=== PATIENT | male | born 1975 | race Caucasian/White ===

== ENCOUNTER 2016-09-26 16:38 | Emergency (ER) | payer OTHER ==
[~2016-09-26] VITALS: Ht 172.7 cm; Wt 90.0 kg
[2016-09-26 17:45] VITALS: BP 123/67; PULSE 77; RESP 18; TEMP 97.8; O2SAT 100
[2016-09-26 19:07] VITALS: BP 111/67; PULSE 81; RESP 18; O2SAT 100
[2016-09-26 19:21] LABS: AUTOMATED NEUTROPHIL # 9.8 TH/MM3 (1.8-7.7); BASOPHIL % 0.3 % (0.0-2.0); BLOOD, URINE NEG (NEG); EOSINOPHIL % 0.3 % (0.0-4.0); GLUCOSE,URINE NEG (NEG); HEMATOCRIT 39.7 % (39.0-51.0); HEMO FLAGS DIFF FINAL; KETONE, URINE NEG (NEG); LYMPH % 9.9 % (9.0-44.0); LYMPHOCYTE # 1.1 TH/MM3 (1.0-4.8); MEAN CELL VOLUME 91.5 FL (80.0-100.0); MEAN CORPUSCULAR HEMOGLOBIN 32.1 PG (27.0-34.0); MEAN CORPUSCULAR HGB CONC 35.1 % (32.0-36.0); MONO % 3.9 % (0.0-8.0); NEUT % 85.6 % (16.0-70.0); NITRITE,URINE NEG (NEG); PLATELET COUNT 202 TH/MM3 (150-450); RED BLOOD COUNT 4.35 MIL/MM3 (4.50-5.90); RED CELL DISTRIBUTION WIDTH 12.8 % (11.6-17.2); URINE COLOR LIGHT-YELLOW (YELLW/STRAW); WHITE BLOOD COUNT 11.5 TH/MM3 (4.0-11.0)
[2016-09-26 19:25] LABS: COMMENT (UR) CULT NOT INDICATED; CULTURE IF INDICATED CULT NOT INDICATED
[2016-09-26 19:45] LABS: ANION GAP 8 MEQ/L (5-15); AST (GOT) 14 U/L (15-37); BICARBONATE 26.5 MEQ/L (21.0-32.0); BLOOD UREA NITROGEN 10 MG/DL (7-18); CHLORIDE 105 MEQ/L (98-107); GLOMERULAR FILTRATION RATE 70 ML/MIN (>89); MAGNESIUM 2.2 MG/DL (1.5-2.5); POTASSIUM 3.3 MEQ/L (3.5-5.1); SODIUM (NA) 139 MEQ/L (136-145)
[2016-09-26 19:46] LABS: ALT (GPT) 16 U/L (12-78)
[2016-09-26 19:50] LABS: ALKALINE PHOSPHATASE 58 U/L (45-117); CREATINE KINASE 158 U/L (39-308); TOTAL BILIRUBIN ADULT 0.8 MG/DL (0.2-1.0)
--- NOTE | 2016-09-26 19:53 | PD ---
HPI Chief Complaint: Dizziness Time Seen by Provider: 19:50 Travel History International Travel<30 days: No Contact w/Intl Traveler<30days: No Traveled to known affect area: No History of Present Illness HPI 32-year-old male that presents to the ED for evaluation of syncopal episode today. Patient had a presyncopal episode today before coming. Patient was at the gym working out when he started feeling dizzy and lightheaded. Per patient he felt like he was in a passout but he didn't. Per patient he was told by multiple people at the gym that he he looked like he was anxious. Patient states that he was given something IV by ambulance which made him feel better. Patient was given IV fluids. He denies any chest pain or shortness of breath. No dizziness at this time. No headache. He does state feeling somewhat lightheaded. No abdominal pain. No nausea or vomiting. He states that he only ate a granola bar and had some water today but and and he denies any other issues. Allergies to penicillin. He states that he worked out his usual today. Per patient about a month ago he had something similar and ever since she's been kind of off. She does state that he has a history of Crohn's disease. Takes no medications for this. Follows with the [facility] for this. [facility] Past Medical History Medical other: Yes (chrones) ?: Not Past Surgical History Surgical History: No Previous Surgery Social History Alcohol Use: Yes (socially ) Tobacco Use: Yes Substance Use: No Allergies-Medications (Allergen,Severity, Reaction): Coded Allergies: Penicillins (Verified Allergy, Unknown, 09/26/16) Review of Systems Except as stated in HPI: all other systems reviewed are Neg Physical Exam Narrative GENERAL: SKIN: Warm and dry. HEAD: Atraumatic. Normocephalic. EYES: Pupils equal and round. No scleral icterus. No injection or drainage. ENT: No nasal bleeding or discharge. Mucous membranes pink and moist. Tongue is midline. No uvula deviation. NECK: Trachea midline. No JVD. CARDIOVASCULAR: Regular rate and rhythm. No murmurs, S3, S4. RESPIRATORY: No accessory muscle use. Clear to auscultation. Breath sounds equal bilaterally. GASTROINTESTINAL: Abdomen soft, non-tender, nondistended. Hepatic and splenic margins not palpable. MUSCULOSKELETAL: Extremities without clubbing, cyanosis, or edema. No obvious deformities. Full range of motion of the upper and lower extremities bilaterally. 2+ pulses bilaterally. NEUROLOGICAL: Awake and alert. No obvious cranial nerve deficits. Motor grossly within normal limits. Five out of 5 muscle strength in the arms and legs. Normal speech. PSYCHIATRIC: Appropriate mood and affect; insight and judgment normal. Data Data Last Documented VS Vital Signs Date Time Temp Pulse Resp B/P Pulse Ox O2 Delivery O2 Flow Rate FiO2 09/26/16 20:10 82 16 125/64 82 14 123/70 81 14 126/74 09/26/16 19:07 100 09/26/16 18:09 Room Air 09/26/16 17:45 97.8 Orders Electrocardiogram (09/26/16 18:40) Complete Blood Count With Diff (09/26/16 18:40) Comprehensive Metabolic Panel (09/26/16 18:40) Ckmb (Isoenzyme) Profile (09/26/16 18:40) Troponin I (09/26/16 18:40) Urinalysis - C+S If Indicated (09/26/16 18:40) Magnesium (Mg) (09/26/16 18:40) Iv Access Insert/Monitor (09/26/16 18:40) Ecg Monitoring (09/26/16 18:40) Orthostatic Vital Signs (09/26/16 18:40) CKMB (09/26/16 19:00) CKMB% (09/26/16 19:00) Sodium Chlor 0.9% 1000 Ml Inj (Ns 1000 M (09/26/16 20:01) Ct Abd/Pel W Iv Contrast(Rout) (09/26/16 ) Iohexol 350 Inj (Omnipaque 350 Inj) (09/26/16 21:49) Labs Laboratory Tests Test 09/26/16 19:00 White Blood Count 11.5 TH/MM3 Red Blood Count 4.35 MIL/MM3 Hemoglobin 14.0 GM/DL Hematocrit 39.7 % Mean Corpuscular Volume 91.5 FL Mean Corpuscular Hemoglobin 32.1 PG Mean Corpuscular Hemoglobin 35.1 % Concent Red Cell Distribution Width 12.8 % Platelet Count 202 TH/MM3 Mean Platelet Volume 8.0 FL Neutrophils (%) (Auto) 85.6 % Lymphocytes (%) (Auto) 9.9 % Monocytes (%) (Auto) 3.9 % Eosinophils (%) (Auto) 0.3 % Basophils (%) (Auto) 0.3 % Neutrophils # (Auto) 9.8 TH/MM3 Lymphocytes # (Auto) 1.1 TH/MM3 Monocytes # (Auto) 0.5 TH/MM3 Eosinophils # (Auto) 0.0 TH/MM3 Basophils # (Auto) 0.0 TH/MM3 CBC Comment DIFF FINAL Differential Comment Urine Color LIGHT-YELLOW Urine Turbidity CLEAR Urine pH 7.0 Urine Specific Paxton 1.001 Urine Protein NEG mg/dL Urine Glucose (UA) NEG mg/dL Urine Ketones NEG mg/dL Urine Occult Blood NEG Urine Nitrite NEG Urine Bilirubin NEG Urine Urobilinogen LESS THAN 2.0 MG/DL Urine Leukocyte Esterase NEG Microscopic Urinalysis Comment CULT NOT INDICATED Sodium Level 139 MEQ/L Potassium Level 3.3 MEQ/L Chloride Level 105 MEQ/L Carbon Dioxide Level 26.5 MEQ/L Anion Gap 8 MEQ/L Blood Urea Nitrogen 10 MG/DL Creatinine 1.17 MG/DL Estimat Glomerular Filtration 70 ML/MIN Rate Random Glucose 90 MG/DL Calcium Level 8.6 MG/DL Magnesium Level 2.2 MG/DL Total Bilirubin 0.8 MG/DL Aspartate Amino Transf 14 U/L (AST/SGOT) Alanine Aminotransferase 16 U/L (ALT/SGPT) Alkaline Phosphatase 58 U/L Total Creatine Kinase 158 U/L Creatine Kinase MB 1.2 NG/ML Troponin I LESS THAN 0.02 NG/ML Total Protein 7.1 GM/DL Albumin 3.7 GM/DL MDM Medical Decision Making Medical Screen Exam Complete: Yes Emergency Medical Condition: Yes Medical Record Reviewed: Yes Interpretation(s) CBC & BMP Diagram 09/26/16 19:00 LFTS WNL troponin and CKMB negative Differential Diagnosis Syncope versus vasovagal episode versus dehydration versus anxiety versus normal exam Narrative Course 40-year-old male that presents to the ED for evaluation of syncope. Patient was properly examined and was found to have signs and symptoms consistent appears to be presyncope. No sign of acute medical distress at this time. Patient feels improved after 1 L of fluids. Likely dehydration from not eating today. Labs ordered. Patient was given IV fluids. Labs were essentially unremarkable. Patient does complain of some abdominal discomfort at this time. He does have a history of Crohn's disease and apparently his doctor wanted to do a CT abdomen to ensure he didn't have anything acute. Family and patient are concerned about the need for a CT scan. CT scan was ordered as patient does have some abdominal discomfort as well as secondary to recent syncopal episode. CT showed Chrons disease. Case discussed with Dr Gonzalez who agrees patient can follow up outpatient with his GI doctor. He was given copies of his exams. He was offered admission for further work up for the pre syncope as this is his second episode in less than a month. He prefers to go home. He did ask for manager food out patient. Told to follow up for further evaluation. See ED if worst. Diagnosis Primary Impression: Pre-syncope Additional Impression: Crohn's disease Qualified Code: K50.919 - Crohn's disease with complication, unspecified gastrointestinal tract location Referrals: John Tinoco MD Patient Instructions: General Instructions Additional Instructions: F/u with your GI doctor this week. Your CT result did show your Chrons might be acting up and he might need to start you on meds. See ED if worsening symptoms. Med/Other Pt SpecificInfo: No Change to Meds Disposition: 01 DISCHARGE HOME Condition: Stable Casey Carney Sep 26, 2016 19:53
[2016-09-26] MEDS ORDERED: SODIUM CHLOR 0.9% 1000 ML INJ 1,000 ML IV SCH (20:01)
[2016-09-26 20:02] LABS: CKMB 1.2 NG/ML (0.5-3.6)
[2016-09-26 20:10] VITALS: BP_SYST 123; BP_SYST 125; BP_SYST 126; BP_DIAS 64; BP_DIAS 70; BP_DIAS 74; RESP 14; RESP 16
[2016-09-26] MEDS ORDERED: IOHEXOL 350 MG/ML 10 ML VIAL (for RAD DIAG) IV ONE (21:49)
--- NOTE | 2016-09-26 22:07 | RADRPT ---
EXAM DATE/TIME: 09/26/2016 21:41 [place] COMPARISON: No previous studies available for comparison. INDICATIONS : Patient complains of weakness, abdominal pain. IV CONTRAST: 100 cc Omnipaque 350 (iohexol) IV ORAL CONTRAST: No oral contrast ingested. RADIATION DOSE: 5.80 CTDIvol (mGy) MEDICAL HISTORY : Crohn's disease. SURGICAL HISTORY : None. ENCOUNTER: Initial ACUITY: 1 day PAIN SCALE: 5/10 LOCATION: abdomen TECHNIQUE: Volumetric scanning of the abdomen and pelvis was performed. Using automated exposure control and ad justment of the mA and/or kV according to patient size, radiation dose was kept as low as reasonably achievable to obtain optimal diagnostic quality images. DICOM format image data is available electro nically for review and comparison. FINDINGS: LOWER LUNGS: The visualized lower lungs are clear. LIVER: Homogeneous density without lesion. There is no dilation of the biliary tree. No calcified gallston es. SPLEEN: Normal size without lesion. PANCREAS: Within normal limits. KIDNEYS: Normal in size and shape. There is no mass, stone or hydronephrosis. ADRENAL GLANDS: Within normal limits. VASCULAR: There is no aortic aneurysm. BOWEL/MESENTERY: Evidence of previous resection of the terminal ileum and cecum with free anastomosis. The last 9 cm o f the ileum shows moderate wall thickening, mucosal enhancement and luminal narrowing. Within the tc stomotic staple line medially of the ascending colon is a redundant fold with mild wall thickening an d mucosal enhancement, series 601 image 32. This is several centimeters above the ileocolic junction. No abscess, perforation or obstruction. Wall thickening seen of the sigmoid colon and rectum. No oth er GI tract inflammatory changes are seen. ABDOMINAL WALL: Within normal limits. RETROPERITONEUM: There is no lymphadenopathy. BLADDER: No wall thickening or mass. REPRODUCTIVE: Within normal limits. INGUINAL: There is no lymphadenopathy or hernia. MUSCULOSKELETAL: No acute bone abnormality demonstrated. CONCLUSION: 1. Previous ileocolic resection and anastomosis. Moderate severity acute Crohn's of the distal ileum. Also an apparent focal area of colonic Crohn's involvement within the staple line a few centimeters distal to the ileocolic junction. 2. Wall thickening of the sigmoid colon and rectum, probably chronic Crohn's involvement. 3. No abscess, perforation, obstruction or other acute complication. Dorian Thapa MD on September 26, 2016 at 21:59 Board Certified Radiologist. This report was verified electronically.
--- NOTE | 2016-09-27 00:25 | EKG ---
Date Performed: 09/26/2016 Time Performed: 19:27:42 PTAGE: 40 years EKG: Sinus rhythm WITH SINUS ARRHYTHMIA POSSIBLE RIGHT VENTRICULAR CONDUCTION DELAY BORDERLINE ECG NO PREVIOUS TRACING DOCTOR: Puneet Tinoco Interpretating Date/Time 09/27/2016 00:23:04
[2016-11-07] MEDS ORDERED: BUDE3CAP PO (11:35)
[2016-11-07] MEDS ORDERED: VALA1TAB PO (11:35)
[2016-11-07] MEDS ORDERED: ALBUAER3 INH (11:47)
== END 2016-09-26 22:38 | disposition home or self-care (01) ==
LOC: NEPE 16:38
DX: R55 Syncope and collapse (principal); K50.919 Crohn's disease, unspecified, with unspecified complications; F17.290 Nicotine dependence, other tobacco product, uncomplicated
CPT/HCPCS: 74177; 80053; 81001; 82550; 82552; 83735; 84484; 85025; 93005; 99285; J7030; Q9967

== ENCOUNTER → 2016-11-08 | Outpatient (CLI) | payer OTHER ==
[~2016-11-08] VITALS: Ht 188 cm; Wt 79.9 kg
[~2016-11-08] MED LIST: ALBUAER3 INH; BUDE3CAP PO; CHLORHEXIDINE GLUCONATE 2 % 1 PACK (2 CLOTHS) TOPICAL PRN; INSULIN HUMAN REGULAR 1,000 UNITS/10 ML VIAL SQ PRN; LACTATED RINGER'S 1000 ML IV PRN; LIDOCAINE HCL 1% PF 5 ML AMPULE OTHER ONE; METOPROLOL TARTRATE 25 MG TAB PO PRN; POVIDONE IODINE 5% (ANTISEPSIS KIT) 4 APPLICATIONS EACH NARE PRN; PROPOFOL 200 MG/20 ML AMP IV ONE; SODIUM CHLORID 0.9% 500 ML IV PRN; VALA1TAB PO
--- NOTE | 2016-11-08 15:03 | GIPROC ---
[facility] [address] [facility]. [facility], [address] EGD PROCEDURE REPORT EXAM DATE: 11/08/2016 PATIENT NAME: Wily Price MR #: [id number] BIRTHDATE: 1975 ATTENDING: Severino Valencia MD ORDER #: [id number] BANKING REPRESENTATIVE: Milton Payne and Dory Engle STATUS: outpatient INDICATIONS: The patient is a 41 yr old male here for an EGD due to periumbilical abdominal pain and surveillance (crohn's) PROCEDURE PERFORMED: EGD, diagnostic MEDICATIONS: None and Per Anesthesia. TOPICAL ANESTHETIC: none CONSENT: The patient understands the risks and benefits of the procedure and understands that these risks include, but are not limited to: sedation, allergic reaction, infection, perforation and/or bleeding. Alternative means of evaluation and treatment include, among others: physical exam, x-rays, and/or surgical intervention. The patient elects to proceed with this endoscopic procedure. medical equipment was checked for proper function. Hand hygiene and appropriate measures for infection prevention was taken. After the risks, benefits and alternatives of the procedure were thoroughly explained, Informed consent was verified, confirmed and timeout was successfully executed by the treatment team. The patient was anesthetized with topical anesthesia and the Pentax [id number] endoscope was introduced through the mouth and advanced to the third portion of the duodenum. Retroflexion was performed and was normal The gastroscope was then slowly withdrawn and removed. ESOPHAGUS: GEjunction was at 47 cm. The esophagus was otherwise normal. STOMACH: The mucosa of the stomach appeared normal. DUODENUM: The duodenal mucosa appeared normal. ADVERSE EVENTS: There were no complications. IMPRESSIONS: 1. GEjunction was at 47 cm 2. The esophagus was otherwise normal 3. The mucosa of the stomach appeared normal 4. Normal duodenal mucosa 5. Retroflexion was performed and was normal RECOMMENDATIONS: Colonoscopy PATIENT CONDITION: stable DISPOSITION: Home REPEAT EXAM: Severino Valencia MD eSigned: Severino Valencia MD 11/08/2016 3:02 PM cc: PATIENT NAME: Wily Price MR#: [id number]
--- NOTE | 2016-11-08 15:19 | GIPROC ---
[facility] [address] [facility]. [facility], [address] COLONOSCOPY PROCEDURE REPORT EXAM DATE: 11/08/2016 PATIENT NAME: Wily Price MR #: [id number] BIRTHDATE: 1975 ENDOSCOPIST: Severino Valencia MD ORDER #: [id number] MOTHER REPAIRER: Dory Engle and Milton Payne STATUS: outpatient INDICATIONS: The patient is a 41 yr old male here for a colonoscopy due to abdominal pain, unexplained diarrhea, and Abnormal CT scan, Crohn's PROCEDURE PERFORMED: Colonoscopy with biopsy MEDICATIONS: None and Per Anesthesia. PREP QUALITY: marginal PREP TYPE:GoLytely ESTIMATED BLOOD LOSS: None CONSENT: The patient understands the risks and benefits of the procedure and understands that these risks include, but are not limited to: sedation, allergic reaction, infection, perforation and/or bleeding. Alternative means of evaluation and treatment include, among others: physical exam, x-rays, and/or surgical intervention. The patient elects to proceed with this endoscopic procedure. medical equipment was checked for proper function. Hand hygiene and appropriate measures for infection prevention was taken. After the risks, benefits and alternatives of the procedure were thoroughly explained, Informed consent was verified, confirmed and timeout was successfully executed by the treatment team. A digital exam was performed and revealed no abnormalities of the rectum The Pentax [id number] endoscope was introduced through the anus and advanced to the terminal ileum which was intubated for a short distance. The instrument was then slowly withdrawn as the colon was fully examined. COLON FINDINGS: There was evidence of a end-to-side, mildly stenosed, hyperemic appearing and inflamed prior surgical anastomosis in the ascending traverse colon. Multiple biopsies were performed. Multiple ulcers (5-10 mm) were noted at the anastomosis-biopied. Four non-bleeding and irregular shaped ulcers ranging between 3-5 mm in size were found in the terminal ileum. Biopsies were taken. Two smooth sessile polyps measuring 2 mm in size were found in the distal transverse colon. Multiple biopsies were performed using cold forceps. Small internal hemorrhoids were found. The colon mucosa was otherwise normal. Multiple biopsies were performed. The bowel was extremely redundant and spastic. Biopsies were taken from the transverse, descending,sigmoid and rectum The scope was then completely withdrawn from the patient and the procedure terminated. PROCEDURE WITHDRAWAL TIME:25minutes ADVERSE EVENTS: There were no complications. IMPRESSIONS: 1. There was evidence of prior surgical anastomosis in the ascending traverse colon; multiple biopsies were performed 2. Multiple ulcers (5-10 mm) were noted at the anastomosis-biopied 3. Four ulcers ranging between 3-5 mm in size were found in the terminal ileum; biopsies were taken 4. Two sessile polyps were found in the distal transverse colon; multiple biopsies were performed using cold forceps 5. Small internal hemorrhoids 6. The colon mucosa was otherwise normal; multiple biopsies were performed 7. The bowel was extremely redundant and spastic 8. Was performed 9. Revealed no abnormalities of the rectum RECOMMENDATIONS: Await biopsy results. Biopsy results will not be ready for 7-10 days. If you don't hear from us in two weeks, call our office for results. RECALL: Return 1 year Colonoscopy Severino Valencia MD eSigned: Severino Valencia MD 11/08/2016 3:19 PM cc: PATIENT NAME: Wily Price MR#: [id number]
[2016-11-08 15:35] VITALS: BP 111/67; PULSE 55; RESP 20; TEMP 97.6; O2SAT 99
== END ==
LOC: HOR 11:53
PROVIDERS: ATTEND Internal Medicine Gastroenterology
DX: R10.9 Unspecified abdominal pain (principal); K50.90 Crohn's disease, unspecified, without complications; K63.5 Polyp of colon; K64.8 Other hemorrhoids
CPT/HCPCS: 00810; 43239; 45380; 88305; J7120